=== PATIENT | female | born 1935 | race Caucasian/White ===

== ENCOUNTER 2019-03-12 19:03 | Emergency (ER) | payer MEDICARE, OTHER ==
[~2019-03-12] VITALS: Ht 157.5 cm; Wt 55.9 kg
[~2019-03-12 19:03] MED LIST: MECL12.584 PO
[2019-03-12 19:31] LABS: BASOPHILS # (AUTO) 0.1 X10'3 (0-0.2); BASOPHILS % (AUTO) 1.4 % (0-1); EOSINOPHILS # (AUTO) 0.2 X10'3 (0-0.9); EOSINOPHILS % (AUTO) 2.3 % (0-6); HEMATOCRIT 39.7 % (35.0-45.0); HEMOGLOBIN 13.4 g/dl (12.0-16.0); LYMPHOCYTES % (AUTO) 41.3 % (21-51); MEAN CORPUSCULAR HGB CONC 33.8 g/dL (33.0-36.5); MEAN CORPUSCULAR VOLUME 85.6 FL (78-98); MEAN PLATELET VOLUME 8.2 FL (7.4-10.4); MONOCYTES # (AUTO) 0.5 X10'3 (0-0.9); MONOCYTES % (AUTO) 7.5 % (2-12); NEUTROPHILS # (AUTO) 3.4 X10'3 (1.8-7.7); NEUTROPHILS % (AUTO) 47.5 % (42-75); PLATELET COUNT 217 X10'3 (140-440); RED BLOOD COUNT 4.64 X10'6 (4.20-5.60); RED CELL DISTRIBUTION WIDTH 13.8 % (11.5-14.5); WHITE BLOOD COUNT 7.2 X10'3 (4.5-11.0)
[2019-03-12 19:37] LABS: PARTIAL THROMBOPLASTIN TIME 24 SECONDS (22-32)
[2019-03-12 19:39] LABS: ALANINE AMINOTRANSFERASE 19 U/L (12-78); ALBUMIN 3.9 G/DL (3.4-5.0); ALBUMIN/GLOBULIN RATIO 1.1 (1.1-1.5); ALKALINE PHOSPHATASE 121 IU/L (46-116); ANION GAP 10 (8-16); ASPARTATE AMINO TRANSFERASE 15 U/L (10-37); BILIRUBIN,TOTAL 0.3 MG/DL (0.1-1.0); BLOOD UREA NITROGEN 21 MG/DL (7-18); BUN/CREATININE RATIO 21.4 (6.6-38.0); CALCIUM 8.3 MG/DL (8.5-10.1); CHLORIDE 107 MMOL/L (99-107); CREATININE 0.98 MG/DL (0.40-0.90); GLUCOSE 135 MG/DL (70-104); SODIUM 144 MMOL/L (135-145); TOTAL CARBON DIOXIDE 26.9 MMOL/L (24-32); TOTAL PROTEIN 7.6 G/DL (6.4-8.2); eGFR 54 ML/MIN
[2019-03-12] MEDS ORDERED: pantoprazole 40 MG vial IV ONE (20:55)
[2019-03-12] MEDS ORDERED: aspirin 81mg tab.chew PO ONE (20:55)
[2019-03-12 21:17] VITALS: BP 161/98
== END 2019-03-12 21:21 | disposition left against medical advice (07) ==
LOC: ER 19:04
DX: R07.89 Other chest pain (principal); R11.10 Vomiting, unspecified; R53.83 Other fatigue; I25.10 Atherosclerotic heart disease of native coronary artery without angina pectoris; E78.00 Pure hypercholesterolemia, unspecified; F10.99 Alcohol use, unspecified with unspecified alcohol-induced disorder; Z95.1 Presence of aortocoronary bypass graft; Z79.899 Other long term (current) drug therapy; Y90.9 Presence of alcohol in blood, level not specified
CPT/HCPCS: 36415; 71045; 80053; 84484; 85025; 85610; 85730; 93005; 96374; 99284; C9113

== ENCOUNTER 2019-12-01 07:32 | Emergency (ER) | payer MEDICARE, OTHER ==
[~2019-12-01] VITALS: Ht 154.9 cm; Wt 54.0 kg
[~2019-12-01 07:32] MED LIST changes: +ASPI-611 PO; +CARV3.12 PO; +CEFD300C3 PO; +LACT1CAP26 PO; +MECL-183 PO; -MECL12.584 PO; +NITR0.4T51 SL; +OMEP-50 PO; +ROSU10TA28 PO
--- NOTE | 2019-12-01 07:40 | NUR ---
EKG 0756
[2019-12-01] MEDS ORDERED: aspirin 81mg tab.chew PO ONE (07:45)
[2019-12-01 08:06] LABS: BASOPHILS % (AUTO) 0.7 % (0-1); EOSINOPHILS # (AUTO) 0.1 X10'3 (0-0.9); EOSINOPHILS % (AUTO) 1.9 % (0-6); HEMATOCRIT 42.2 % (35.0-45.0); HEMOGLOBIN 13.6 g/dl (12.0-16.0); LYMPHOCYTES # (AUTO) 1.6 X10'3 (1.1-4.8); LYMPHOCYTES % (AUTO) 26.1 % (21-51); MEAN CORPUSCULAR HEMOGLOBIN 28.1 PG (27.0-31.0); MEAN CORPUSCULAR HGB CONC 32.3 g/dL (33.0-36.5); MEAN CORPUSCULAR VOLUME 86.9 FL (78-98); MEAN PLATELET VOLUME 8.5 FL (7.4-10.4); MONOCYTES # (AUTO) 0.5 X10'3 (0-0.9); MONOCYTES % (AUTO) 8.7 % (2-12); NEUTROPHILS # (AUTO) 3.8 X10'3 (1.8-7.7); NEUTROPHILS % (AUTO) 62.6 % (42-75); PLATELET COUNT 211 X10'3 (140-440); RED BLOOD COUNT 4.85 X10'6 (4.20-5.60); RED CELL DISTRIBUTION WIDTH 14.6 % (11.5-14.5); WHITE BLOOD COUNT 6.1 X10'3 (4.5-11.0)
[2019-12-01 08:19] LABS: ALANINE AMINOTRANSFERASE 20 U/L (12-78); ALBUMIN 3.7 G/DL (3.4-5.0); ALBUMIN/GLOBULIN RATIO 0.9 (1.1-1.5); ALKALINE PHOSPHATASE 106 IU/L (46-116); ANION GAP 7 (8-16); ASPARTATE AMINO TRANSFERASE 14 U/L (10-37); BILIRUBIN,TOTAL 0.5 MG/DL (0.1-1.0); BLOOD UREA NITROGEN 13 MG/DL (7-18); BUN/CREATININE RATIO 10.6 (6.6-38.0); CALCIUM 9.1 MG/DL (8.5-10.1); CHLORIDE 106 MMOL/L (99-107); CREATININE 1.23 MG/DL (0.40-0.90); GLUCOSE 102 MG/DL (70-104); POTASSIUM 4.6 MMOL/L (3.5-5.1); SODIUM 141 MMOL/L (135-145); TOTAL CARBON DIOXIDE 28.3 MMOL/L (24-32); TOTAL PROTEIN 7.8 G/DL (6.4-8.2); eGFR 42 ML/MIN
--- NOTE | 2019-12-01 08:22 | NUR ---
DR. DELA CRUZ AT BEDSIDE.
[2019-12-01] MEDS ORDERED: LIDOcaine Viscous 15ml cup MM ONE (09:30)
[2019-12-01] MEDS ORDERED: mag hydrox/Alum hydrox/simeth 30ml oral suspension PO ONE (09:30)
[2019-12-01] MEDS ORDERED: famotidine 20mg tablet PO ONE (09:30)
[2019-12-01] MEDS ORDERED: nitroGLYCERIN 0.4mg SUBLingual tab SL PRN (10:05)
[2019-12-01 11:27] VITALS: BP 121/70
== END 2019-12-01 12:03 | disposition home or self-care (01) ==
LOC: ER 07:33
DX: R07.89 Other chest pain (principal); R11.2 Nausea with vomiting, unspecified; R42 Dizziness and giddiness; I25.10 Atherosclerotic heart disease of native coronary artery without angina pectoris; E78.00 Pure hypercholesterolemia, unspecified; Z72.89 Other problems related to lifestyle; Z79.82 Long term (current) use of aspirin; Z79.899 Other long term (current) drug therapy
CPT/HCPCS: 36415; 71045; 80053; 84484; 85025; 93005; 99284

== ENCOUNTER 2019-12-03 07:18 | Emergency (ER) | payer MEDICARE, OTHER ==
[~2019-12-03] VITALS: Ht 154.9 cm; Wt 54.0 kg
[2019-12-03 08:43] LABS: BASOPHILS % (AUTO) 0.7 % (0-1); EOSINOPHILS # (AUTO) 0.1 X10'3 (0-0.9); EOSINOPHILS % (AUTO) 2.3 % (0-6); HEMATOCRIT 38.8 % (35.0-45.0); HEMOGLOBIN 12.6 g/dl (12.0-16.0); LYMPHOCYTES # (AUTO) 1.5 X10'3 (1.1-4.8); LYMPHOCYTES % (AUTO) 30.9 % (21-51); MEAN CORPUSCULAR HGB CONC 32.4 g/dL (33.0-36.5); MEAN CORPUSCULAR VOLUME 86.4 FL (78-98); MEAN PLATELET VOLUME 8.8 FL (7.4-10.4); MONOCYTES # (AUTO) 0.5 X10'3 (0-0.9); MONOCYTES % (AUTO) 9.2 % (2-12); NEUTROPHILS # (AUTO) 2.8 X10'3 (1.8-7.7); NEUTROPHILS % (AUTO) 56.9 % (42-75); PLATELET COUNT 199 X10'3 (140-440); RED BLOOD COUNT 4.49 X10'6 (4.20-5.60); RED CELL DISTRIBUTION WIDTH 13.8 % (11.5-14.5)
[2019-12-03 08:56] LABS: ALANINE AMINOTRANSFERASE 16 U/L (12-78); ALBUMIN 3.3 G/DL (3.4-5.0); ALKALINE PHOSPHATASE 86 IU/L (46-116); ANION GAP 6 (8-16); ASPARTATE AMINO TRANSFERASE 12 U/L (10-37); BILIRUBIN,TOTAL 0.5 MG/DL (0.1-1.0); BLOOD UREA NITROGEN 17 MG/DL (7-18); CALCIUM 8.8 MG/DL (8.5-10.1); CHLORIDE 108 MMOL/L (99-107); CREATININE 1.06 MG/DL (0.40-0.90); GLUCOSE 114 MG/DL (70-104); POTASSIUM 4.1 MMOL/L (3.5-5.1); SODIUM 140 MMOL/L (135-145); TOTAL CARBON DIOXIDE 25.8 MMOL/L (24-32); TOTAL PROTEIN 6.7 G/DL (6.4-8.2); eGFR 50 ML/MIN
[2019-12-03 10:38] VITALS: BP 138/77
== END 2019-12-03 10:39 | disposition home or self-care (01) ==
LOC: ER 07:19
DX: R07.89 Other chest pain (principal); R10.9 Unspecified abdominal pain; R42 Dizziness and giddiness; I25.10 Atherosclerotic heart disease of native coronary artery without angina pectoris; E78.00 Pure hypercholesterolemia, unspecified; Z95.1 Presence of aortocoronary bypass graft; Z72.89 Other problems related to lifestyle; Z79.82 Long term (current) use of aspirin; Z79.899 Other long term (current) drug therapy
CPT/HCPCS: 36415; 71045; 80053; 83880; 84484; 85025; 93005; 99285

== ENCOUNTER 2019-12-06 11:32 | Day surgery (SDC) | payer MEDICARE, OTHER ==
[~2019-12-06] VITALS: Ht 154.9 cm; Wt 54.1 kg
[2019-12-06] VITALS (8 sets, daily range): BP systolic 105–135; BP diastolic 54–74
[2019-12-06] MEDS ORDERED: fentaNYL/PF 50MCG/1 ML 2ML syringe ONE (12:43)
[2019-12-06] MEDS ORDERED: verapamil 2.5 mg/ml inj IV ONE (12:43)
[2019-12-06] MEDS ORDERED: LACT1CAP60 PO (12:43)
[2019-12-06] MEDS ORDERED: nitroGLYCERIN-Tridil 50MG/D5W 250 ML IV ONE (12:43)
[2019-12-06] MEDS ORDERED: NITR0.4T51 SL (12:43)
[2019-12-06] MEDS ORDERED: ASPI-1265 PO (12:43)
[2019-12-06] MEDS ORDERED: OMEP40CA13 PO (12:43)
[2019-12-06] MEDS ORDERED: ROSU20TA2 PO (12:43)
[2019-12-06] MEDS ORDERED: heparin 1,000unit/ml 10ml vial 10 ML ONE ×2 (12:44→13:46)
[2019-12-06] MEDS ORDERED: midazolam 2 mg/2 ml injection ONE (12:44)
[2019-12-06] MEDS ORDERED: LIDOcaine 1% (10mg/ml)w/preservative injection 20ml MDV ONE (12:44)
[2019-12-06] MEDS ORDERED: iohexol 350MG/ML 100ml bottle IV ONE (12:44)
[2019-12-06] MEDS ORDERED: diphenhydrAMINE 25mg capsule PO PRN (13:10)
[2019-12-06] MEDS ORDERED: LORazepam 0.5 MG tablet PO PRN (13:10)
[2019-12-06] MEDS ORDERED: normal saline 1,000 ML IV SCH (13:10)
[2019-12-06] MEDS ORDERED: diphenhydrAMINE 50 mg/ml inj ONE (13:12)
[2019-12-06] MEDS ORDERED: iohexol 350 MG/ML 50ML vial IV ONE (13:39)
[2019-12-06] MEDS ORDERED: hydrALAZINE 20mg/ml inj. IV ONE (14:03)
[2019-12-06] MEDS ORDERED: ticagrelor 90mg tablet ONE (14:06)
[2019-12-06] MEDS ORDERED: ondansetron/PF 4mg/2ml inj IV PRN (14:40)
[2019-12-06] MEDS ORDERED: acetaminophen 325mg tablet PO PRN (14:40)
[2019-12-06] MEDS ORDERED: HYDROcodone/acetaminophen 10/325mg tab PO PRN (14:40)
[2019-12-06] MEDS ORDERED: OXAZEpam 15mg capsule PO PRN (14:40)
[2019-12-06] MEDS ORDERED: proCHLORperazine 10 MG/2 ml inj IV PRN (14:40)
[2019-12-06] MEDS ORDERED: HYDROcodone/acetaminophen 5mg/325mg tablet PO PRN (14:40)
[2019-12-06] MEDS ORDERED: ticagrelor 90mg tablet PO SCH (20:00)
== END 2019-12-06 17:00 | disposition home or self-care (01) ==
LOC: SSTAY O 11:32
PROVIDERS: ATTEND Internal Medicine Interventional Cardiology
DX: R07.89 Other chest pain (principal); I25.10 Atherosclerotic heart disease of native coronary artery without angina pectoris; E78.5 Hyperlipidemia, unspecified; I34.0 Nonrheumatic mitral (valve) insufficiency; I65.23 Occlusion and stenosis of bilateral carotid arteries; Z95.1 Presence of aortocoronary bypass graft; Z79.899 Other long term (current) drug therapy; Z79.82 Long term (current) use of aspirin
CPT/HCPCS: 93459; 99152; 99153; C1725; C1751; C1769; C1874; C1894; C9600; J0360; J1200; J1644; J2001; J2250; J3010; Q9967; 93458; A4620; A6258; J3490

== ENCOUNTER 2021-06-04 09:30 | Inpatient (IN) | payer MEDICARE, OTHER ==
[~2021-06-04] VITALS: Ht 157.5 cm; Wt 55.5 kg
[~2021-06-04 09:30] MED LIST changes: +ASPI-1265 PO; -ASPI-611 PO; -CARV3.12 PO; -CEFD300C3 PO; -LACT1CAP26 PO; +LACT1CAP60 PO; -MECL-183 PO; -OMEP-50 PO; +OMEP40CA21 PO; -ROSU10TA28 PO; +ROSU20TA2 PO
[2021-06-04] MEDS ORDERED: aspirin 81mg tab.chew PO ONE (09:45)
[2021-06-04] MEDS ORDERED: nitroGLYCERIN 0.4mg SUBLingual tab SL PRN (09:45)
[2021-06-04 09:55] LABS: BASOPHILS # (AUTO) 0.1 X10'3 (0-0.2); BASOPHILS % (AUTO) 0.8 % (0-1); EOSINOPHILS # (AUTO) 0.1 X10'3 (0-0.9); EOSINOPHILS % (AUTO) 1.1 % (0-6); HEMATOCRIT 37.5 % (35.0-45.0); HEMOGLOBIN 12.4 g/dl (12.0-16.0); LYMPHOCYTES # (AUTO) 1.2 X10'3 (1.1-4.8); LYMPHOCYTES % (AUTO) 17.8 % (21-51); MEAN CORPUSCULAR HEMOGLOBIN 28.2 PG (27.0-31.0); MEAN CORPUSCULAR VOLUME 85.3 FL (78-98); MEAN PLATELET VOLUME 8.7 FL (7.4-10.4); MONOCYTES # (AUTO) 0.7 X10'3 (0-0.9); MONOCYTES % (AUTO) 10.4 % (2-12); NEUTROPHILS # (AUTO) 4.7 X10'3 (1.8-7.7); NEUTROPHILS % (AUTO) 69.9 % (42-75); PLATELET COUNT 184 X10'3 (140-440); RED BLOOD COUNT 4.39 X10'6 (4.20-5.60); RED CELL DISTRIBUTION WIDTH 14.2 % (11.5-14.5); WHITE BLOOD COUNT 6.7 X10'3 (4.5-11.0)
[2021-06-04 10:23] LABS: ALANINE AMINOTRANSFERASE 9 U/L (12-78); ALBUMIN 3.3 G/DL (3.4-5.0); ALBUMIN/GLOBULIN RATIO 0.9 (1.1-1.5); ALKALINE PHOSPHATASE 88 IU/L (46-116); ANION GAP 7 (8-16); ASPARTATE AMINO TRANSFERASE 14 U/L (10-37); BILIRUBIN,TOTAL 0.7 MG/DL (0.1-1.0); BLOOD UREA NITROGEN 12 MG/DL (7-18); CALCIUM 8.7 MG/DL (8.5-10.1); CHLORIDE 106 MMOL/L (99-107); GLUCOSE 107 MG/DL (70-104); POTASSIUM 4.1 MMOL/L (3.5-5.1); SODIUM 141 MMOL/L (135-145); TOTAL CARBON DIOXIDE 28.4 MMOL/L (24-32); TOTAL PROTEIN 6.8 G/DL (6.4-8.2); eGFR 53 ML/MIN
[2021-06-04] MEDS ORDERED: ketorolac trometh. 30mg/ml inj. IM ONE (14:40)
[2021-06-04 15:24] LABS: D-DIMER 6.48 MG/L FEU (0-0.50)
[2021-06-04] MEDS ORDERED: iohexol 350MG/ML 100ml bottle IV ONE (15:47)
[2021-06-04] MEDS ORDERED: morphine 2 MG/ML inj. syringe IV PRN (17:35)
[2021-06-04] MEDS ORDERED: magnesium 2GM in 50ml NS 50 ML IV PRN (17:35)
[2021-06-04] MEDS ORDERED: HYDROcodone/acetaminophen 5mg/325mg tablet PO PRN (17:35)
[2021-06-04] MEDS ORDERED: magnesium 4gm in 100ml NS 100 ML IV PRN (17:35)
[2021-06-04] MEDS ORDERED: potassium CL 10mEq/100ml bag 100 ML IV PRN (17:35)
[2021-06-04] MEDS ORDERED: ondansetron/PF 4mg/2ml inj IV PRN (17:35)
[2021-06-04] MEDS ORDERED: acetaminophen 325mg tablet PO PRN ×2 (17:35)
[2021-06-04] MEDS ORDERED: potassium Cl 20 mEq SR tablet PO PRN ×2 (17:35)
[2021-06-04] MEDS ORDERED: heparin 10,000 units/1 ML INJ IV PRN (17:35)
[2021-06-04] MEDS ORDERED: magnesium Cl slow-release 64mg tablet PO PRN (17:35)
[2021-06-04] MEDS: heparin 25,000 UNIT/250ml bag 250 ML IV SCH (20:52)
[2021-06-04] MEDS: K and/or MAG REPLACEMENT MC SCH (21:33)
[2021-06-04] MEDS: normal saline 1000ml 1,000 ML IV SCH (21:52)
--- NOTE | 2021-06-04 21:52 | NUR ---
Patient resting comfortably in room. Heparin started. Normal saline not given at this time due to variable incompatability with Heparin.
[2021-06-04] MEDS ORDERED: OMEP20CA16 PO (22:22)
[2021-06-04] MEDS ORDERED: ROSU20TA31 PO (22:22)
[2021-06-04] MEDS ORDERED: CLOP75TA34 PO (22:22)
[2021-06-04] MEDS ORDERED: ASPI-1397 PO (22:22)
[2021-06-04] MEDS ORDERED: CARV3.122 PO (22:22)
--- NOTE | 2021-06-04 22:50 | NUR ---
Pt to be admitted to [facility]. Report received, from ED MARIAM Rosenthal. Pt on Heparin drip.
--- NOTE | 2021-06-04 22:55 | NUR ---
Was called by lab that patients PTT was too high to read. This nurse was not notified that lab was drawing PTT, and this order was done to soon (protocol should be lab draw in six hours after heparin infusion starts). Believing that the IV wasn't stopped when labs were drawn, this nurse will draw patient's PTT before sending patient upstairs now. Incoming nurse notified and aware.
--- NOTE | 2021-06-04 23:20 | NUR ---
Heparin drip stopped per protocol until repeat labs returned.
[2021-06-04 23:25] VITALS: BP 119/86
--- NOTE | 2021-06-04 23:25 | NUR ---
Transferred patient and report given to next nurse Shazia. Heparin levels drawn by this nurse, and concern for patient's levels to be skewed based off of getting initial loading bolus recently. Care and report passed off.
--- NOTE | 2021-06-04 23:25 | NUR ---
Pt received, from ED, Heparin drip infusing, PTT to be drawn per protocol, previous level off, drawn too closed to start of Heparin. Pt is stable, denies CP, VSS, afebrile, no c/o voiced at this time. Call light placed within easy reach, bed in lowest position, side rails up x2. POC discussed with pt, verbalized understanding.
[2021-06-05 02:00] VITALS: BP 139/64
[2021-06-05] MEDS: normal saline 1000ml 1,000 ML IV SCH ×2 (02:50→21:08)
[2021-06-05 03:22] LABS: BASOPHILS % (AUTO) 0.6 % (0-1); EOSINOPHILS # (AUTO) 0.1 X10'3 (0-0.9); EOSINOPHILS % (AUTO) 1.1 % (0-6); HEMOGLOBIN 11.4 g/dl (12.0-16.0); LYMPHOCYTES # (AUTO) 1.4 X10'3 (1.1-4.8); LYMPHOCYTES % (AUTO) 22.1 % (21-51); MEAN CORPUSCULAR HEMOGLOBIN 28.5 PG (27.0-31.0); MEAN CORPUSCULAR HGB CONC 33.5 g/dL (33.0-36.5); MEAN CORPUSCULAR VOLUME 85.1 FL (78-98); MEAN PLATELET VOLUME 8.7 FL (7.4-10.4); MONOCYTES # (AUTO) 0.7 X10'3 (0-0.9); MONOCYTES % (AUTO) 10.8 % (2-12); NEUTROPHILS # (AUTO) 4.3 X10'3 (1.8-7.7); NEUTROPHILS % (AUTO) 65.4 % (42-75); PLATELET COUNT 168 X10'3 (140-440); RED BLOOD COUNT 3.99 X10'6 (4.20-5.60); RED CELL DISTRIBUTION WIDTH 14.3 % (11.5-14.5); WHITE BLOOD COUNT 6.5 X10'3 (4.5-11.0)
[2021-06-05 03:38] LABS: ALANINE AMINOTRANSFERASE 12 U/L (12-78); ALBUMIN 2.8 G/DL (3.4-5.0); ALBUMIN/GLOBULIN RATIO 0.8 (1.1-1.5); ALKALINE PHOSPHATASE 81 IU/L (46-116); ANION GAP 5 (8-16); ASPARTATE AMINO TRANSFERASE 13 U/L (10-37); BILIRUBIN,TOTAL 0.4 MG/DL (0.1-1.0); BLOOD UREA NITROGEN 20 MG/DL (7-18); BUN/CREATININE RATIO 17.2 (6.6-38.0); CHLORIDE 108 MMOL/L (99-107); CREATININE 1.16 MG/DL (0.40-0.90); GLUCOSE 108 MG/DL (70-104); POTASSIUM 4.3 MMOL/L (3.5-5.1); SODIUM 140 MMOL/L (135-145); TOTAL CARBON DIOXIDE 27.1 MMOL/L (24-32); TOTAL PROTEIN 6.4 G/DL (6.4-8.2); eGFR 45 ML/MIN
[2021-06-05] MEDS: heparin 25,000 UNIT/250ml bag 250 ML IV SCH (04:00)
--- NOTE | 2021-06-05 04:00 | NUR ---
PTT 79, Heparin rate decreased by 100units/hr,per protocol, infusing at 9cc/hr.
--- NOTE | 2021-06-05 04:00 | NUR ---
Next PTT in 6hrs, at 1000 am.
[2021-06-05 06:00] VITALS: BP 153/65
--- NOTE | 2021-06-05 06:05 | NUR ---
Patient in room PCU 3020. I have received report from Shazia BECERRA and had the opportunity to ask questions and assume patient care.
--- NOTE | 2021-06-05 06:21 | NUR ---
Problems reprioritized. Patient report given, questions answered & plan of care reviewed with MARIAM Marrufo.
[2021-06-05] MEDS: CefTRIAXone 2gm/D5W 50ml BAG 50 ML IV SCH (07:36)
[2021-06-05] MEDS: K and/or MAG REPLACEMENT MC SCH ×2 (08:00→20:00)
[2021-06-05 11:00] VITALS: BP 152/68
--- NOTE | 2021-06-05 11:28 | NUR ---
PAGER ID: [phone] MESSAGE: Re: Louise Rosales. Room: 3020. Pt complaining of upset stomach. IV Zofran ineffective. Can we try Maalox? -[facility] #[phone] -Dr. Love paged concerning Pt's GI upset.
[2021-06-05] MEDS ORDERED: mag hydrox/Alum hydrox/simeth 30ml oral suspension PO PRN (12:10)
[2021-06-05 12:36] LABS: APTT 80 SECONDS (22-32)
[2021-06-05 15:00] VITALS: BP 105/55
[2021-06-05] MEDS ORDERED: methylPREDNISolone sod succ 125mg/2ml vial IV SCH (16:40)
[2021-06-05 18:00] VITALS: BP 138/54
--- NOTE | 2021-06-05 18:30 | NUR ---
Problems reprioritized. Patient report given, questions answered & plan of care reviewed with Ny BECERRA.
[2021-06-05] MEDS: carVEDilol 3.125mg tablet PO SCH (21:01)
[2021-06-05] MEDS: lactobacillus rhamnosus 10,000 MMU CELLS/CAPSULE PO SCH (21:01)
[2021-06-05] MEDS: methylPREDNISolone sod succ/PF 40mg inj. IV SCH (21:01)
[2021-06-05 22:00] VITALS: BP 122/68
[2021-06-06 02:00] VITALS: BP 160/66
--- NOTE | 2021-06-06 05:45 | NUR ---
Miss Rosales has been assessed as indicated. She has been noted to be both pleasant and cooperative. She continues to deny pain. She ambulates to the restroom with no assistance. She has no s/s of excessive bleeding. 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 Miss Keenan is resting quietly and will continue to be monitored
[2021-06-06 06:00] VITALS: BP 155/70
--- NOTE | 2021-06-06 06:10 | NUR ---
Patient in room PCU 3020. I have received report from Ny BECERRA and had the opportunity to ask questions and assume patient care.
--- NOTE | 2021-06-06 06:30 | NUR ---
Problems reprioritized. Patient report given, questions answered & plan of care reviewed with FIDEL BECERRA.
[2021-06-06 06:58] LABS: BASOPHILS % (AUTO) 0.1 % (0-1); EOSINOPHILS % (AUTO) 0 % (0-6); HEMATOCRIT 35.3 % (35.0-45.0); HEMOGLOBIN 11.9 g/dl (12.0-16.0); LYMPHOCYTES # (AUTO) 0.5 X10'3 (1.1-4.8); LYMPHOCYTES % (AUTO) 7.7 % (21-51); MEAN CORPUSCULAR HEMOGLOBIN 28.3 PG (27.0-31.0); MEAN CORPUSCULAR HGB CONC 33.8 g/dL (33.0-36.5); MEAN CORPUSCULAR VOLUME 83.8 FL (78-98); MONOCYTES # (AUTO) 0.1 X10'3 (0-0.9); MONOCYTES % (AUTO) 1.2 % (2-12); NEUTROPHILS # (AUTO) 6.2 X10'3 (1.8-7.7); PLATELET COUNT 179 X10'3 (140-440); RED BLOOD COUNT 4.21 X10'6 (4.20-5.60); RED CELL DISTRIBUTION WIDTH 13.8 % (11.5-14.5); WHITE BLOOD COUNT 6.8 X10'3 (4.5-11.0)
[2021-06-06 07:05] LABS: APTT 55 SECONDS (22-32)
[2021-06-06 07:14] LABS: ALANINE AMINOTRANSFERASE 8 U/L (12-78); ALBUMIN 2.8 G/DL (3.4-5.0); ALBUMIN/GLOBULIN RATIO 0.7 (1.1-1.5); ALKALINE PHOSPHATASE 79 IU/L (46-116); ANION GAP 7 (8-16); ASPARTATE AMINO TRANSFERASE 12 U/L (10-37); BILIRUBIN,TOTAL 0.4 MG/DL (0.1-1.0); BLOOD UREA NITROGEN 12 MG/DL (7-18); CALCIUM 8.5 MG/DL (8.5-10.1); CHLORIDE 105 MMOL/L (99-107); GLUCOSE 177 MG/DL (70-104); POTASSIUM 4.5 MMOL/L (3.5-5.1); SODIUM 137 MMOL/L (135-145); TOTAL CARBON DIOXIDE 24.6 MMOL/L (24-32); TOTAL PROTEIN 6.8 G/DL (6.4-8.2); eGFR 68 ML/MIN
[2021-06-06] MEDS ORDERED: atorvastatin 20mg tablet PO SCH (08:00)
[2021-06-06] MEDS: K and/or MAG REPLACEMENT MC SCH ×2 (08:00→19:09)
[2021-06-06] MEDS ORDERED: pantoprazole 40mg Tablet.DR PO SCH (08:00)
[2021-06-06] MEDS ORDERED: clopidogrel 75mg tablet PO SCH (08:00)
[2021-06-06] MEDS: lactobacillus rhamnosus 10,000 MMU CELLS/CAPSULE PO SCH ×2 (08:32→19:46)
[2021-06-06] MEDS: carVEDilol 3.125mg tablet PO SCH ×2 (08:32→19:46)
[2021-06-06] MEDS: methylPREDNISolone sod succ/PF 40mg inj. IV SCH ×2 (08:34→19:46)
[2021-06-06] MEDS: CefTRIAXone 2gm/D5W 50ml BAG 50 ML IV SCH (08:36)
[2021-06-06 11:00] VITALS: BP 150/62
[2021-06-06] MEDS ORDERED: APIX5TAB3 PO (13:09)
[2021-06-06] MEDS ORDERED: LEVO500T90 PO (13:09)
[2021-06-06] MEDS ORDERED: heparin 25,000 UNIT/250ml bag 250 ML IV SCH (15:44)
--- NOTE | 2021-06-06 16:00 | NUR ---
Problems reprioritized. Patient report given, questions answered & plan of care reviewed with Ny BECERRA, patient stable at [facility].
--- NOTE | 2021-06-06 16:00 | NUR ---
Problems reprioritized. Patient report given, questions answered & plan of care reviewed with Jazlyn BECERRA.
--- NOTE | 2021-06-06 16:38 | NUR ---
PAGER ID: [phone] MESSAGE: Re: Ackernecht. Gil. Room: 3020. Can I put order in for 10 mg Eliquis at 1930 before Pt gets DC? -[facility] #[phone] -Dr. Love paged concerning Eliquis order.
[2021-06-06 18:00] VITALS: BP 117/76
[2021-06-06] MEDS ORDERED: apixaban 5mg tablet PO ONE (20:00)
--- NOTE | 2021-06-06 20:19 | NUR ---
Miss Rosales has been DC. She remained on IV Heparin until 2009. PO Eliqis was provided at 1930. At the time of DC she was compliant with the plan to DC and excited to home. She was driven home by her in a private vehicle. IV access was DC. No s/s of bleeding were noted. At the time of DC there were no s/s of distress or discomfort. She was escorted to the front door via WC by hospital staff. Her had gone ahead of her to warm the car and meet her at the door
== END 2021-06-06 20:19 | disposition home or self-care (01) | DRG 176 ==
LOC: ER 09:30 → ED HOLD 17:43 → ORTHO 4S 23:30 → PCU 3S 23:44
PROVIDERS: ADMIT Internal Medicine; ATTEND Internal Medicine
PROC: B32T1ZZ Computerized Tomography (CT Scan) of Left Pulmonary Artery using Low Osmolar Contrast (ICD-10-PCS; principal; 2021-06-04)
PROC: B3201ZZ Computerized Tomography (CT Scan) of Thoracic Aorta using Low Osmolar Contrast (ICD-10-PCS; 2021-06-04)
PROC: B32S1ZZ Computerized Tomography (CT Scan) of Right Pulmonary Artery using Low Osmolar Contrast (ICD-10-PCS; 2021-06-04)
DX: I26.99 Other pulmonary embolism without acute cor pulmonale (principal); I25.10 Atherosclerotic heart disease of native coronary artery without angina pectoris; E78.5 Hyperlipidemia, unspecified; Z66 Do not resuscitate; E78.00 Pure hypercholesterolemia, unspecified; Z20.822 Contact with and (suspected) exposure to COVID-19; Z95.1 Presence of aortocoronary bypass graft; Z79.899 Other long term (current) drug therapy; Z79.82 Long term (current) use of aspirin
CPT/HCPCS: 36415; 71045; 71275; 80053; 83605; 83880; 84484; 85025; 85379; 85730; 87040; 87635; 93005; 93306; 96372; 97116; 97161; 97530; 99285; G0378; J0696; J1644; J1885; J2405; J2920; J7030; Q9967

== ENCOUNTER 2021-12-28 11:51 | Emergency (ER) | payer MEDICARE, OTHER ==
[~2021-12-28] VITALS: Ht 157.5 cm; Wt 56.8 kg
[~2021-12-28 11:51] MED LIST changes: +APIX5TAB3 PO; -ASPI-1265 PO; +CARV3.122 PO; +CLOP75TA34 PO; -LACT1CAP60 PO; -NITR0.4T51 SL; +OMEP20CA16 PO; -OMEP40CA21 PO; -ROSU20TA2 PO; +ROSU20TA31 PO
[2021-12-28 12:55] LABS: BASOPHILS % (AUTO) 0.7 % (0-1); EOSINOPHILS # (AUTO) 0.1 X10'3 (0-0.9); EOSINOPHILS % (AUTO) 0.8 % (0-6); HEMATOCRIT 40.6 % (35.0-45.0); LYMPHOCYTES # (AUTO) 1.6 X10'3 (1.1-4.8); LYMPHOCYTES % (AUTO) 25.7 % (21-51); MEAN CORPUSCULAR HEMOGLOBIN 27.3 PG (27.0-31.0); MEAN CORPUSCULAR HGB CONC 31.9 g/dL (33.0-36.5); MEAN CORPUSCULAR VOLUME 85.4 FL (78-98); MEAN PLATELET VOLUME 7.8 FL (7.4-10.4); MONOCYTES # (AUTO) 0.4 X10'3 (0-0.9); MONOCYTES % (AUTO) 7.4 % (2-12); NEUTROPHILS % (AUTO) 65.4 % (42-75); PLATELET COUNT 251 X10'3 (140-440); RED BLOOD COUNT 4.76 X10'6 (4.20-5.60); RED CELL DISTRIBUTION WIDTH 15.5 % (11.5-14.5); WHITE BLOOD COUNT 6.1 X10'3 (4.5-11.0)
[2021-12-28 13:10] LABS: ALANINE AMINOTRANSFERASE 29 U/L (12-78); ALBUMIN 3.7 G/DL (3.4-5.0); ALKALINE PHOSPHATASE 149 IU/L (46-116); ASPARTATE AMINO TRANSFERASE 23 U/L (10-37); BILIRUBIN,TOTAL 0.3 MG/DL (0.1-1.0); BLOOD UREA NITROGEN 15 MG/DL (7-18); CHLORIDE 110 MMOL/L (99-107); CREATININE 1.07 MG/DL (0.40-0.90); GLUCOSE 99 MG/DL (70-104); SODIUM 146 MMOL/L (135-145); TOTAL PROTEIN 7.3 G/DL (6.4-8.2); eGFR 49 ML/MIN
[2021-12-28 13:17] LABS: POTASSIUM 4.8 MMOL/L (3.5-5.1)
[2021-12-28 13:24] LABS: ANION GAP 5 (8-16); TOTAL CARBON DIOXIDE 30.6 MMOL/L (24-32)
[2021-12-28 14:41] VITALS: BP 152/76
== END 2021-12-28 15:33 | disposition home or self-care (01) ==
LOC: ER 11:53
DX: R42 Dizziness and giddiness (principal); I25.10 Atherosclerotic heart disease of native coronary artery without angina pectoris; E78.00 Pure hypercholesterolemia, unspecified; Z86.711 Personal history of pulmonary embolism; Z98.890 Other specified postprocedural states; Z72.89 Other problems related to lifestyle; Z79.899 Other long term (current) drug therapy
CPT/HCPCS: 36415; 71045; 80053; 83880; 84484; 85025; 93005; 99285

== ENCOUNTER 2025-02-02 09:10 | Emergency (ER) | payer MEDICARE, OTHER ==
[~2025-02-02] VITALS: Ht 154.9 cm; Wt 52.3 kg
[2025-02-02] VITALS (7 sets, daily range): BP systolic 108–134; BP diastolic 45–97; PULSE 61–63; RESP 15–18; TEMP 97.8–98.6; O2SAT 98
[~2025-02-02 09:10] MED LIST changes: -ROSU20TA31 PO; +ROSU20TA98 PO
--- NOTE | 2025-02-02 09:20 | ELECTROCARDIOGRAPH REPORT ---
[facility] Test Date: 2025-02-02 Test Time: 09:17:04 Pat Name: JIM GRIMES Department: EMERGENCY ROOM Room: Gender: F Composite Assembler: VLAD : 1935 Requested By: SANTIAGO PEÑA Order Number: [id number] Reading MD: Measurements Intervals [place] Rate: 71 P: 64 MN: 137 QRS: 63 QRSD: 93 T: 67 QT: 405 QTc: 441 Interpretive Statements Sinus rhythm Please click the below link to view image of tracing.
[2025-02-02 09:33] LABS: MEAN PLATELET VOLUME 8.6 FL (7.4-10.4); RED CELL DISTRIBUTION WIDTH 14.2 % (11.5-14.5)
[2025-02-02] MEDS: normal saline 1000ml 1,000 ML IV ONE (09:39)
[2025-02-02] MEDS: ondansetron/PF 4mg/2ml inj IV ONE (09:41)
--- NOTE | 2025-02-02 09:56 | RADIOLOGY REPORT ---
CHEST RADIOGRAPH Indication: CP Technique: Single frontal view of the chest was obtained COMPARISON: CHEST,SINGLE VIEW on DOS: 12/28/21, CHEST,SINGLE VIEW on DOS: 06/04/21 FINDINGS: Lines and Tubes: Median sternotomy Lungs: Clear Pleura: No effusion. No pneumothorax. Cardiomediastinal contours: Unremarkable Bones: Unremarkable IMPRESSION: No acute disease.
[2025-02-02 09:57] LABS: CREATININE 1.13 MG/DL (0.40-0.90); TOTAL CARBON DIOXIDE 20.1 MMOL/L (24-32); eCRCL 26 ML/MIN; eGFR 45 ML/MIN
[2025-02-02] MEDS ORDERED: iohexol 300mg/ml 100ml inj. ONE (10:02)
[2025-02-02] MEDS: CefTRIAXone/D5W-Rocephin 1gm 50 ML IV ONE (10:44)
--- NOTE | 2025-02-02 11:07 | RADIOLOGY REPORT ---
CLINICAL HISTORY: abdominal pain TECHNIQUE: CT of the abdomen and pelvis was performed with IV contrast. This exam was performed according to our departmental dose optimization program. Up-to-date CT equipment and radiation dose reduction techniques are utilized as appropriate. CTDI 7.3 DLP 342 COMPARISON: None FINDINGS: Abdomen/Pelvis: The spleen, pancreas, adrenal glands, gallbladder, and bladder are unremarkable. There is diffuse hepatic steatosis with liver cysts. Subcentimeter hypodense lesions within both kidneys and the liver are too small to adequately characterize. The abdominal aorta is normal in course and caliber. There are moderate atherosclerotic calcifications. There is no free intraperitoneal air. There is no enlarged abdominal or pelvic lymph node. There is no bowel wall thickening or dilatation. The appendix is normal. There is a moderate amount of blood at the left pelvic side wall which slightly extends into the left lower quadrant. Blood is noted within the left lower rectus sheath. Blood displaces the bladder to the right. There is a blush of contrast within the blood at the left lower anterior pelvis. There is DVT within the left internal and common iliac veins as well as IVC. Other: The imaged lower thorax demonstrates mild atelectatic changes at the right lung base. There is a small hiatal hernia. No acute osseous abnormality is evident. IMPRESSION: Moderate amount of focal blood at the left lateral pelvic sidewall/lower abdomen as well as left lower rectus sheath, with focus of contrast blush, concerning for active bleeding. DVT within the left common and external iliac veins as well as IVC. FINDINGS AND INTERPRETATION DISCUSSED WITH DR PEÑA AT DATE AND TIME 02/02/2025 11:04 AM
[2025-02-02 11:14] LABS: LEUKOCYTE ESTERASE ,URINE NEGATIVE (Neg); NITRITES, URINE NEGATIVE (Neg); OCCULT BLOOD,URINE NEGATIVE (Neg)
[2025-02-02 11:18] LABS: INR 1.0 INR
[2025-02-02 11:19] LABS: UA COLLECTION TYPE OTHER
[2025-02-02 11:36] LABS: MEAN PLATELET VOLUME 8.3 FL (7.4-10.4); RED CELL DISTRIBUTION WIDTH 14.2 % (11.5-14.5)
[2025-02-02] MEDS ORDERED: HUM PROTHROMB CPLX-LANS 0 UNIT IV ONE (12:00)
[2025-02-02] MEDS ORDERED: albumin (human) 25% 100ml IV 100 ML in normal saline 500ml IV soln 400 ML IV ONE (12:00)
[2025-02-02] MEDS: normal saline 500ml IV soln 500 ML IV SCH (12:10)
[2025-02-02] MEDS: tranexamic acid 1gm/0.7% sal. 100 ML IV ONE (12:32)
[2025-02-02] MEDS: albumin (Human) 5% 250ml 500 ML IV ONE (12:41)
--- NOTE | 2025-02-02 12:57 | Physician Documentation ---
History of Present Illness ~ Chief Complaint: Abdominal Pain w/vomiting Stated Complaint: SYNCOPE Time Seen by MD: 09:25 Primary Medical Doctor: Cyndi Gandara HPI 89 year old female brought in by ambulance with her at the bedside reporting that she began experiencing LLQ abdominal pain shortly prior to presentation. She was out in the yard with the dogs when it started and came in the house and reportedly fell over because of the pain. She did not strike her head or lose consciousness. She was ambulatory afterward. On arrival she is shaky and in pain. The history is a bit difficult to sort out but it appears that the abdominal pain started first rather than after the fall inside her home. She vomited once. She has a history of cardiac stenting and when I ask the patient and her if she takes blood thinners, they are unsure. She was otherwise in her normal state of health with no fevers, vomiting, cough, shortness of breath, or chest pain. Medication Reconciliation Allergies: Coded Allergies: No Known Allergies (Unverified , 02/02/25) Scheduled Apixaban (Eliquis), 5 MG PO BID Carvedilol (Carvedilol), 1 TAB PO BID, (Reported) Clopidogrel Bisulfate (Clopidogrel), 1 TAB PO DAILY, (Reported) Omeprazole (Omeprazole), 1 CAP PO DAILY, (Reported) Rosuvastatin Calcium (Rosuvastatin Calcium), 1 TAB PO DAILY, (Reported) Past Medical History Past Medical History: Vertigo, Coronary Artery Disease, High Cholesterol, Pulmonary Embolism Past Surgical History: coronary bypass surgery, other Other Past Surgical History: CABGx2 in 2005 Patient History: Can Alcohol Use: Occasionally Drug Use: none Lives with: Spouse Lives In: Home Review of Systems All Other Systems at this time: Reviewed and Negative Physical Exam Vital Signs: RN Vital Signs have been reviewed: Yes, Temperature: 97.4, Source: Oral, Heart Rate: 61, Respiratory Rate: 14, BP: 117/58, Pulse Oximetry: 99, Weight: 52.300 Oxygen Flow Rate: 0 Physical Exam HEENT: PERRL, moist oral mucosa, EOMI Pulmonary: No respiratory distress Cardiac: RRR, no murmur, rub or gallop GI: nondistended, soft, exquisitely tender LLQ with diffuse tenderness and +peritoneal signs MSK: no deformity Skin: w/d/i, no rash Neuro: alert, nonfocal Psych: normal affect Progress Results/Orders Results/Orders Orders - SANTIAGO PEÑA MD Nothing By Mouth (02/02/25 Lunch) Chest,Single View (02/02/25 09:15) Monitor (02/02/25 09:15) Saline Lock (02/02/25 09:15) Oxygen (02/02/25 09:15) Ct Abdomen Pelvis (02/02/25 09:37) Abg (Arterial Blood Gas) (02/02/25 13:12) Ct Abdomen Pelvis (02/02/25 15:16) Cbc/Diff (02/02/25 18:00) Completed Orders - SANTIAGO PEÑA MD Urinalysis, Cult If Indicated (02/02/25 09:15) Cbc/Diff (02/02/25 09:15) Lipase (02/02/25 09:15) CMP (02/02/25 09:15) Chest,Single View (02/02/25 09:15) Electrocardiogram (02/02/25 09:15) Hs Troponin I W Calculations (02/02/25 09:15) Hs Troponin I W Calculations (02/02/25 11:15) Hs Troponin I W Calculations (02/02/25 12:15) Normal Saline 1000ml (0.9% Sodium Chlori (02/02/25 09:25) Lacticsepsis (02/02/25 09:25) Ondansetron Inj. (Zofran 4mg/2ml Vial) (02/02/25 09:35) Ct Abdomen Pelvis (02/02/25 09:37) Iohexol 300mg/Ml 100ml Inj. (Omnipaque-3 (02/02/25 10:02) Ceftriaxone/B8l-Holewzly 1gm (Rocephin 1 (02/02/25 10:25) Pt Inr (02/02/25 11:03) Type And Screen (02/02/25 11:03) Cbc/Diff (02/02/25 11:04) Tranexamic Acid 1gm/0.7% Jaylen. (Tranexami (02/02/25 12:00) Hum Prothromb Cplx-Lans (Balfaxar 500 Un (02/02/25 12:00) Lrpc - Active Bleeding (02/02/25 12:02) Cbc/Diff (02/02/25 13:11) LA (02/02/25 13:12) Lactic,2hr (02/02/25 14:55) Ct Abdomen Pelvis (02/02/25 15:16) Cbc/Diff (02/02/25 15:59) Medications Received in ER Medications (Trade) Dose Ordered Sig/Marco Route PRN Reason Start Time Stop Time Status Last Admin Dose Admin Ceftriaxone Sodium 50 ml @ 100 mls/hr ONCE ONCE IV 02/02/25 10:25 02/02/25 10:54 DC 02/02/25 10:44 100 MLS/HR Tranexamic Acid 100 ml @ 100 mls/hr ONCE ONCE IV 02/02/25 12:00 02/02/25 12:59 DC 02/02/25 12:32 100 MLS/HR Sodium Chloride 500 ml @ 0 mls/hr Q0M IV 02/02/25 12:00 02/02/25 12:10 500 MLS/HR Albumin Human 500 ml @ 500 mls/hr ONCE ONCE IV 02/02/25 12:25 02/02/25 13:24 DC 02/02/25 12:41 500 MLS/HR Prothrombin Complex Concent (Human) 2000 unit/ Sterile Water 80 ml @ 376 mls/hr ONCE ONCE IV 02/02/25 13:20 02/02/25 13:32 DC 02/02/25 13:32 376 MLS/HR Vital Signs 02/02/25 02/02/25 02/02/25 02/02/25 09:17 09:50 09:52 10:21 Temp 97.7 Pulse 71 58 62 Resp 21 14 15 B/P (MAP) 146/82 133/73 (93) 149/63 (91) Pulse Ox 9 94 93 O2 Flow Rate 0 0 02/02/25 02/02/25 02/02/25 02/02/25 10:25 10:55 11:38 12:00 Temp 97.4 Pulse 63 66 68 Resp 16 16 18 B/P (MAP) 138/49 (78) 96/54 (68) 84/52 (63) Pulse Ox 96 97 98 O2 Flow Rate 0 0 0 02/02/25 02/02/25 02/02/25 02/02/25 12:10 12:15 12:30 12:46 Pulse 72 61 Resp 16 14 B/P (MAP) 102/60 (74) 120/67 (84) 103/55 (71) 117/58 (77) Pulse Ox 98 99 O2 Flow Rate 0 0 02/02/25 02/02/25 02/02/25 02/02/25 13:43 14:13 14:15 14:28 Temp 97.9 97.9 97.8 Pulse 64 63 66 63 Resp 17 15 15 16 B/P (MAP) 123/48 (73) 108/45 108/45 (66) 116/52 Pulse Ox 98 99 O2 Flow Rate 0 02/02/25 02/02/25 02/02/25 02/02/25 14:52 14:55 14:58 15:11 Temp 98.0 98.0 98.0 97.8 Pulse 63 61 61 61 Resp 16 17 16 16 B/P (MAP) 109/53 118/97 118/97 (104) 127/63 Pulse Ox 99 O2 Flow Rate 0 02/02/25 02/02/25 02/02/25 02/02/25 15:24 15:24 15:58 16:43 Temp 98.0 98.0 Pulse 63 63 63 62 Resp 16 16 14 18 B/P (MAP) 134/59 134/59 (84) 139/59 (85) 122/51 (74) Pulse Ox 99 98 98 O2 Flow Rate 0 0 0 Laboratory Tests Test 02/02/25 09:17 02/02/25 09:35 02/02/25 11:07 02/02/25 11:29 White Blood Count 12.9 H 15.1 H Red Blood Count 4.44 3.61 L Hemoglobin 12.5 10.2 L Hematocrit 38.5 31.3 L Mean Corpuscular Volume 86.8 86.6 Mean Corpuscular Hemoglobin 28.3 28.3 Mean Corpuscular Hemoglobin Concent 32.6 L 32.7 L Red Cell Distribution Width 14.2 14.2 Platelet Count 251 210 Mean Platelet Volume 8.6 8.3 Neutrophils (%) (Auto) 57.4 82.2 H Lymphocytes (%) (Auto) 32.2 9.8 L Monocytes (%) (Auto) 9.4 7.4 Eosinophils (%) (Auto) 0.7 0.2 Basophils (%) (Auto) 0.3 0.4 Neutrophils # (Auto) 7.4 12.4 H Lymphocytes # (Auto) 4.2 1.5 Monocytes # (Auto) 1.2 H 1.1 H Eosinophils # (Auto) 0.1 0.0 Basophils # (Auto) 0.0 0.1 CBC Comment Prothrombin Time 10.7 INR International Normalized Ratio 1.0 Coagulation Comments Sodium Level 142 Potassium Level 4.0 Chloride Level 108 H Carbon Dioxide Level 20.1 L Anion Gap 14 Blood Urea Nitrogen 19 H Creatinine 1.13 H Estimated GFR/1.73 m2 45 BUN/Creatinine Ratio 16.8 Glucose Level 198 H Calcium Level 9.0 Total Bilirubin 0.4 Aspartate Amino Transf (AST/SGOT) 15 Alanine Aminotransferase (ALT/SGPT) 12 Alkaline Phosphatase 77 Troponin I High Sensitivity 11 13 Total Protein 6.5 Albumin 3.4 Globulin 3.1 Albumin/Globulin Ratio 1.1 Lipase 64 Chemistry Comments Lactic Acid Level 1.9 Urine Specimen Description Other Urine Color Yellow Urine Clarity Clear Urine pH 6.0 Urine Specific Nucla <=1.005 Urine Protein Negative Urine Glucose (UA) Negative Urine Ketones Negative Urine Occult Blood Negative Urine Nitrite Negative Urine Bilirubin Negative Urine Urobilinogen 0.2 Urine Leukocyte Esterase Negative Urine Culture Indicated Not ind Volume Urine Centrifuged 10 ml Urine Comment Troponin I High Sens Percent Delta 18 Troponin I Hi Sens Absolute Change 2 Test 02/02/25 12:24 02/02/25 13:29 02/02/25 13:50 02/02/25 16:01 Troponin I High Sensitivity 13 Troponin I High Sens Percent Delta 0 Troponin I Hi Sens Absolute Change 0 White Blood Count 12.8 H 12.8 H Red Blood Count 3.07 L 4.08 L Hemoglobin 8.6 L 11.9 L Hematocrit 26.9 L 36.2 Mean Corpuscular Volume 87.5 88.7 Mean Corpuscular Hemoglobin 28.2 29.3 Mean Corpuscular Hemoglobin Concent 32.2 L 33.0 Red Cell Distribution Width 13.9 14.6 H Platelet Count 162 142 Mean Platelet Volume 8.7 8.1 Neutrophils (%) (Auto) 87.4 H 89.9 H Lymphocytes (%) (Auto) 7.4 L 5.8 L Monocytes (%) (Auto) 4.7 4.0 Eosinophils (%) (Auto) 0.1 0 Basophils (%) (Auto) 0.4 0.3 Neutrophils # (Auto) 11.2 H 11.5 H Lymphocytes # (Auto) 0.9 L 0.7 L Monocytes # (Auto) 0.6 0.5 Eosinophils # (Auto) 0.0 0.0 Basophils # (Auto) 0.1 0.0 CBC Comment Lactic Acid Level 2.4 H 1.7 Blood Gas Specimen Type Arterial Blood Gas Puncture Site Rr O2 Saturation 95.9 Arterial Blood pH (Temp corrected) 7.343 L Arterial Blood pCO2 (Temp correct) 31.1 L Arterial Blood pO2 (Temp corrected) 91.2 Arterial Blood PO2/FiO2 Ratio 4.48 Arterial Blood HCO3 16.6 L Arterial Blood Base Excess -8.3 L Arterial Blood Oxyhemoglobin 95.3 Arterial Blood Carboxyhemoglobin 0.3 L Arterial Blood Methemoglobin 0.3 Arterial Blood Deoxyhemoglobin 4.1 Jose Test Positive Blood Gas Hemoglobin 9.1 L Blood Gas Temperature 36.5 Blood Gas Modality Room air FiO2 21.0 Re-Evaluation Re-Evaluation : Re-Evaluation Time: 16:00 Progress 1600: Spoke with [facility] after receiving denials from [facility], [facility] in [place], and [facility]. [place] currently considering. Meanwhile patient's H/H have slowly trended down, however she just finished 2 units PRBC's and has received TXA, prothrombin concentrate, and albumin. Repeat CT is pending and repeat H/H currently pending. Repeat lactic acid pending as noted to trend upwards as well. Patient remains hemodynamically stable and mentating. 1640: repeat H/H demonstrated increase of hemoglobin to just under 12. Repeat lactic acid trended down. Patient remains hemodynamically stable and awaiting reply from [facility] on bed space. 1710: Spoke with [facility] and updated with patient status. They are awaiting IR physician to get out of a procedure to present case and reportedly have bed space, will get back to us hopefully with an acceptance. Patient remains hemodynamically stable after the 2 units PRBC's and interventions, and there is another repeat H/H scheduled for 1800. Will hand off patient to Dr. Tang for continued care and disposition. Multiple updates to patient and family members throughout the day, keeping them abreast of progress and plan of care. Medical Decision Making Findings 89 year old female with exquisitely tender abdomen as above. Vitals otherwise unremarkable. IVF and workup started. CBC demonstrated leukocytosis, and CT scan demonstrated posterior rectus sheath hematoma with concern for active extravasation. Spoke with Dr. Dinero, our surgeon credit relationship manager, who recommended transfer for IR intervention. Type and cross process started for transfusion, TXA and prothrombin concentrate ordered. Repeat H/H demonstrated a 2 point drop in hemoglobin after 1 liter of fluid. Spoke with [facility], declined due to bed space. Patient remains in stable condition. Will continue serial H/H. Spoke with [facility] transfer center at around 12:45. Currently awaiting response from their facility. Patient remains hemodynamically stable. Additional Comments Ddx = diverticulitis, volvulous, bowel obstruction, intraabdominal bleeding, kidney stone, UTI, sepsis, bowel infarction, perforated viscus Departure Disposition: 02 SHORT TERM HOSPITAL Impression: Primary Impression: Rectus sheath hematoma Additional Impression: Hemorrhage Condition: Critical Referrals: NO PRIMARY CARE PROVIDER (PCP) Education Educated: Patient, Family Educated regarding: diagnosis, treatment, prognosis, need for follow up Critical Care Note Total Time (mins): 120 Critical Care Note This patient has required 120 minutes of critical care time for serial labs, volume and blood resusctitation, blood gas interpretation, and frequent reassessments. Signature Scribe Signature: . Attestation: . SANTIAGO PEÑA MD Feb 02, 2025 12:57
[2025-02-02] MEDS: STERILE IV ONE (13:32)
[2025-02-02] MEDS: WATER FOR INJ IV ONE (13:32)
[2025-02-02] MEDS: HUM PROTHROMB CPLX LANS IV ONE (13:32)
--- NOTE | 2025-02-02 13:38 | PROGRESS NOTE ---
Progress Note ID Providers to CC ~ Progress Note Progress Note: pt seen and examined-needs transfer for ir embolization-discussed with Dt. TURNER Walker MD Feb 02, 2025 13:38
[2025-02-02 13:41] LABS: MEAN PLATELET VOLUME 8.7 FL (7.4-10.4); RED CELL DISTRIBUTION WIDTH 13.9 % (11.5-14.5)
[2025-02-02 13:53] LABS: ABG BASE EXCESS -8.3 mmol/L (-2.0-3.0); ABG HCO3 16.6 mmol/L (21.0-28.0); ABG OXYGEN SATURATION 95.9 % (94.0-98.0); ABG PCO2 (T) 31.1 mmHg (32.0-45.0); ABG PH (T) 7.343 (7.350-7.450); ABG PO2 (T) 91.2 mmHg (83.0-108.0); ALLEN'S TEST POSITIVE; FCOHb 0.3 % (0.5-1.5); FHHb 4.1 % (0.0-5.0); FIO2 21.0 mmHg/%; FMetHb 0.3 % (0.0-1.5); FO2Hb 95.3 % (94.0-98.0); MODE ROOM AIR; PATIENT TEMPERATURE 36.5; TOTAL HEMOGLOBIN 9.1 G/dl (12.0-16.0)
--- NOTE | 2025-02-02 14:17 | CONSULTATION ---
DATE OF CONSULTATION: 02/02/2025 DICTATING PHYSICIAN: Addison Dinero MD REASON FOR CONSULTATION: Evaluation of abdominal pain. HISTORY OF PRESENT ILLNESS: The patient is an 89-year-old female with history of coronary artery disease, hyperlipidemia, and previous pulmonary embolism, who developed lower abdominal pain this a.m., presented to the ER for evaluation. CAT scan revealed a pelvic hematoma with active extravasation. Surgical evaluation now requested. On further questioning, the patient denies any history of trauma, develops pain spontaneously. She states she stopped her Eliquis, question of Plavix use. PAST MEDICAL HISTORY: Vertigo, coronary artery disease, hyperlipidemia, and pulmonary embolism. PAST SURGICAL HISTORY: Previous CABG x 2. HOME MEDICATIONS: Include Coreg, Plavix, Prilosec, rosuvastatin, question Eliquis. ALLERGIES: None. SOCIAL HISTORY: She lives with her . Occasional alcohol use. REVIEW OF SYSTEMS: See H and P. PHYSICAL EXAMINATION: GENERAL: A well-nourished elderly female, minimal distress. VITAL SIGNS: Include a pulse of 66, blood pressure 96/54. HEART: Regular rate and rhythm. LUNGS: Clear to auscultation. ABDOMEN: Somewhat distended. Left lower quadrant tenderness is present. EXTREMITIES: Unremarkable. LABORATORY DATA: Included a WBC of 12, hematocrit of 38, which was dropped to 31 on subsequent repeat blood draw. Platelet count is 210. INR is 1. Chemistries include a BUN and creatinine and 1.13, CO2 is 20, chloride is 108. IMAGING STUDIES: CT abdomen and pelvis reveals a hematoma in the left lateral pelvic sidewall, lower left rectus sheath with active extravasation. IMPRESSION: * Spontaneous rectus sheath hematoma with subsequent erosion of the pelvic sidewall with ongoing extravasation. The patient appears to be hemodynamically stable at this point in time. * Coronary artery disease. * History of hyperlipidemia. * History of pulmonary embolus. RECOMMENDATIONS: * Transfer for IR embolization. * Serial hematocrits. * Reverse Eliquis if the patient has been taking. * Consider platelet transfusion given her history of Plavix use. Addison Dinero MD TID: [id number] RECEIPT: [id number] /[facility] [place]
[2025-02-02 16:08] LABS: MEAN PLATELET VOLUME 8.1 FL (7.4-10.4); RED CELL DISTRIBUTION WIDTH 14.6 % (11.5-14.5)
--- NOTE | 2025-02-02 16:20 | RADIOLOGY REPORT ---
Exam: CT CT ABDOMEN PELVIS History: continued intraabdominal bleeding Comparison Study: CT CT ABDOMEN PELVIS W/ IV CONTRAST on DOS: 02/02/25 TECHNIQUE: Multidetector CT of the abdomen AND PELVIS without IV contrast. Axial, coronal and sagittal multiplanar reformats were obtained from the axial data set by the technologist. Radiation Dose Information: CT Dose: CTDI volume is 9.92 mGy. Dose-length product is 495.29 mGy*cm FINDINGS: Bibasilar atelectasis/ scarring. Partially visualized heart is unremarkable. 1.9 cm hepatic cyst with additional subcentimeter hypodense hepatic lesions that are too small to characterize. Otherwise, liver, spleen, pancreas and adrenal glands are unremarkable. Layering hyperdensity within the gallbladder which may represent vicarious excretion of contrast . Otherwise, the gallbladder is unremarkable. Contrast is noted within the bilateral renal collecting systems and right ureter with no contrast noted within the left mid and distal ureter. Contrast filled urinary bladder is displaced to the right of the hemipelvis. Uterus is also displaced to the right of the hemipelvis. Redemonstration of large amount of blood product within the [id number]-right pelvis, extending into the left lower abdomen, and left paracolic gutter with involvement of the left rectus abdominus muscle ; increased from prior imaging mainly within the rectus sheath. Small hiatal hernia. Mild gastric wall thickening which is most likely from inadequate distension. Small bowel loops are unremarkable. Appendix is not definitely visualized. Mild wall thickening of the ascending colon. Sigmoid diverticulosis without diverticulitis. Small to moderate amount of fecal ma terial within the colon with large amount of fecal material within the rectum. No evidence of intraperitoneal free air. No evidence of aortic aneurysm. Moderate Heavy atherosclerotic calcification of the aorta and bilateral iliacs. Limited evaluation of the thrombosis of the left common iliac artery, left external iliac artery and IVC given noncontrast imaging. No significant lymphadenopathy. Tiny fat containing umbilical hernia. Otherwise, the soft tissues are unremarkable. Hemangioma within the L5 vertebral body. Minimal chronic appearing anterior wedge deformity of T12. Diffuse demineralization. Severe degenerative changes of the right hip. IMPRESSION: Redemonstration of large amount of blood product within the [id number]-right pelvis, extending into the left lower abdomen, and left paracolic gutter with involvement of the left rectus abdominus muscle ; increased from prior imaging mainly within the rectus sheath. Limited evaluation of the thrombosis of the left common iliac artery, left external iliac artery and IVC given noncontrast imaging. Mild wall thickening of the ascending colon. Correlate for mild colitis.
[2025-02-02 18:51] LABS: MEAN PLATELET VOLUME 8.5 FL (7.4-10.4); RED CELL DISTRIBUTION WIDTH 14.3 % (11.5-14.5)
[2025-02-02 21:07] LABS: MEAN PLATELET VOLUME 8.5 FL (7.4-10.4); RED CELL DISTRIBUTION WIDTH 14.6 % (11.5-14.5)
== END 2025-02-02 22:46 | disposition short-term general hospital (02) ==
LOC: ER 09:10
DX: S30.1XXA Contusion of abdominal wall, initial encounter (principal); I25.10 Atherosclerotic heart disease of native coronary artery without angina pectoris; E78.00 Pure hypercholesterolemia, unspecified; Z72.89 Other problems related to lifestyle; Z95.5 Presence of coronary angioplasty implant and graft; Z95.1 Presence of aortocoronary bypass graft; Z86.711 Personal history of pulmonary embolism; Z79.899 Other long term (current) drug therapy; W18.30XA Fall on same level, unspecified, initial encounter; Y93.89 Activity, other specified; Y92.009 Unspecified place in unspecified non-institutional (private) residence as the place of occurrence of the external cause; Y99.8 Other external cause status
CPT/HCPCS: 36415; 36430; 36600; 71045; 74176; 74177; 80053; 81003; 82803; 83605; 83690; 84484; 85018; 85025; 85610; 86885; 86900; 86901; 86920; 93005; 96361; 96365; 96367; 96368; 96375; 99291; 99292; A4615; C9132; J0696; J2405; J3490; J7030; J7040; J7050; P9016; P9045; Q9967; J7168